=== PATIENT | male | born 1965 | race Caucasian/White ===

== ENCOUNTER 2025-08-10 09:35 | Emergency (ER) | payer OTHER, SELFPAY ==
[2025-08-10 09:39] VITALS: BP 141/90; PULSE 76; RESP 18; TEMP 36.8; O2SAT 95
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
[2025-08-10 10:22] LABS: Abs Immature Grans 0.02 10^3/uL (0.0-0.06); HCT 46.5 % (40.0-50.0); HGB 15.8 g/dL (13.5-17.5); Immature Grans % 0.2 %; MCH 31.9 pg (27.0-33.0); MCHC 34.0 % (32.0-36.0); MCV 94 fL (80-95); MPV 9.7 fL (8.0-11.0); Platelet Count 292 10^3/uL (130-400); RBC 4.95 10^6/uL (4.36-5.78); RDW 12.4 % (11.8-14.1); RDW-SD 42.6 fL; WBC 9.36 10^3/uL (4.4-10.8)
[2025-08-10] MEDS: Normal Saline - Diluent 50 ML VIAL IJ (10:22)
[2025-08-10] MEDS: Omnipaque 350 MG/ML 100 ML BTL IJ (10:22)
[2025-08-10 10:42] LABS: Lipase 27 U/L (<53)
[2025-08-10 10:45] LABS: ALT 26 U/L (10-49); AST 26 U/L (<34); Albumin 4.8 g/dL (3.4-5.0); Alkaline Phosphatase 58 U/L (46-116); Anion Gap 7 mmol/L (3-11); BUN 18 mg/dL (9-23); Bilirubin, Total 0.80 mg/dL (0.2-1.2); CO2 29.0 mmol/L (20.0-31.0); Calcium 9.4 mg/dL (8.3-10.6); Chloride 107 mmol/L (98-107); Glucose 90 mg/dL (74-106); Potassium 3.6 mmol/L (3.5-5.1); Sodium 143 mmol/L (136-145); Total Protein 7.5 g/dL (5.7-8.2)
[2025-08-10] MEDS: Fluorescein STRIPS 100/BOX 1 MG OP (11:12)
[2025-08-10] MEDS: Tetracaine 0.5% 4 ML BTL (11:12)
== END 2025-08-10 11:49 | disposition home or self-care (01) ==
PROVIDERS: Emergency Provider Physician Assistant
DX: M54.2 Cervicalgia (principal); H53.8 Other visual disturbances; V48.6XXA Car passenger injured in noncollision transport accident in traffic accident, initial encounter; M54.50 Low back pain, unspecified
CPT/HCPCS: 99284; 99285; 36415; 74177; 80053; 83690; 70450; 71260; 72125; 85025; J3490